=== PATIENT | male | born 1935 | race Caucasian/White ===

== ENCOUNTER 2016-08-30 21:35 | Emergency (ER) | payer OTHER ==
--- NOTE | ~2016-08-30 | CR71 ---
[facility] A Service of [facility] RADIOLOGY TEXT RESULTS PATIENT: SHAW WYNN LOCATION: SED : 34 UNIT #: [id number] AGE: [address]: DARIEL UNGER SEX: M ORDER DR: [id number] [place] [id number] E MR#: [id number] Acc #: [id number] NAME: SHAW WYNN. : 1935 SEX: M STUDY DATE/TIME: 08/30/2016 22:43 UNIT: SED ROOM: STUDY DESCRIPTION: CR Chest Single View Attending Physician: Dariel Unger Aprn Ordering Physician: Physician Non-Staff Primary Care Physician: Primary Care Physician No MEDICAL IMAGING REPORT This report is preliminary unless electronic signature is present. EXAM AP portable chest 08/30/2016 HISTORY 81-year-old male requiring admission chest x-ray for admittance to a mental health facility. Admission testing. TECHNIQUE AP portable upright chest x-ray. FINDINGS Postop changes prior CABG. Stable mild cardiomegaly. Pulmonary vascularity is normal. 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 No visible pulmonary infiltrate or pleural effusion. IMPRESSION 1. No active disease. 2. CABG. Stable mild cardiomegaly and stable tortuous thoracic aorta. 3. Lungs clear. 4. No change since 07/28/2016. 1. Dictated by... Miguelito Dominguez M.D. THIS IS AN ELECTRONICALLY VERIFIED REPORT Miguelito Dominguez M.D. at 08/31/2016 9:42 PM CHANO/[email or web address] TD: 08/31/2016 11:48 JOB #: [id number] MEDICAL IMAGING REPORT [facility] A Service [facility] RADIOLOGY TEXT RESULTS PATIENT: SHAW WYNN LOCATION: SED : 34 UNIT #: [id number] AGE: [address]: DARIEL UNGER SEX: M ORDER DR: Page 1 of 1
[~2016-08-30 21:35] MED LIST: ACETAMINOPHEN PO; AMOXICILLIN PO; ASCORBIC ACID500 MG PO; ASPIRIN81 MG; ASPIRINEC PO; C-10001000 M1 PO; CALAN PO; CARDURA PO; CENTRUM SILVER PO; COUMADIN PO; DEPAKOTE; DEPAKOTE ER; ELIQUIS5 MG PO; EXELON1 PATCH .2 TD; HALDOL; HCTZ PO; HYTRIN; HYTRIN PO; KEPPRA500 M2; LASIX20 MG PO; LEVAQUIN PO; LIPITOR PO; LIPITOR40 MG PO; LISINOPRIL PO; LOMOTIL TABLET1 TAB PO; METOPROLOL SUCC50 MG PO; MULTI-VITAMIN1 TAB PO; NAMENDA10 MG PO; NEURONTIN100 MG PO; NORCO 5/325 TAB1 TAB PO; OMEGA 3 FISH OIL PO; OMEGA 3-6-9 11200 MG PO; POTASSIUM CHLO10 ME1 PO; TRAZODONE; VITAMIN C PO; ZESTRIL10 M2
[2016-08-30 22:01] LABS: URINE SOURCE CLEAN CATCH
[2016-08-30 22:05] LABS: URINE APPEARANCE CLEAR; URINE BILIRUBIN NEG (NEG); URINE BLOOD NEG (NEG); URINE COLOR DK YELLOW; URINE GLUCOSE NEG (NORM); URINE KETONE NEG (NEG); URINE LEUKOCYTE ESTERASE NEG (NEG); URINE NITRATE NEG (NEG); URINE PH 5.5 (5-8); URINE PROTEIN NEG (NEG); URINE SPECIFIC GRAVITY 1.025 (1.003-1.035)
[2016-08-30 22:14] LABS: MICRO INDICATED? NO
[2016-08-30 22:15] LABS: AMPHETAMINE NEG (NEG); BARBITURATES NEG (NEG); BENZODIAZEPINES NEG (NEG); COCAINE NEG (NEG); MARIJUANA NEG (NEG); OPIATES NEG (NEG); TRICYCLIC ANTIDEPRESSANTS NEG (NEG); U METHADONE NEG (NEG)
[2016-08-30 22:19] LABS: BASOPHIL% 0.7 % (0-2.5); EOSINOPHIL# 0.3 X10e3 (0-0.7); EOSINOPHIL% 4.6 % (0.0-7.0); HEMATOCRIT 45.8 % (38.0-50.0); HEMOGLOBIN 14.9 gm/dL (13.0-16.0); LYMPHOCYTE# 1.9 X10e3 (1.0-3.5); MEAN CELL VOLUME 93.4 FL (83-96); MEAN CORPUSCULAR HEMOGLOBIN 30.3 PG (28-34); MEAN CORPUSCULAR HGB CONC 32.5 g/dL (30-36); MONOCYTE# 0.5 X10e3 (0-1.0); MONOCYTE% 8.8 % (3.0-12.0); NEUTROPHIL# 2.9 X10e3 (1.5-7.1); NEUTROPHIL% 51.9 % (40-75); PLATELET COUNT 140 X10e3 (140-420); RED BLOOD COUNT 4.91 X10e (3.90-5.60); RED CELL DISTRIBUTION WIDTH 14.4 % (11.0-15.5); WHITE BLOOD COUNT 5.6 X10e3 (4.0-10.5)
[2016-08-30 22:24] LABS: BUN/CREATININE RATIO 12.3; CALCIUM SERUM 9.4 mg/dL (8.4-10.2); CREATININE SERUM 1.3 mg/dL (0.6-1.4); GLOM FILT RATE Estimated 56.2 mL/min (>60); POTASSIUM 3.4 mmol/L (3.5-5.1)
[2016-08-30 22:26] LABS: DIFF IND NO
== END 2016-08-30 23:24 | disposition home or self-care (01) ==
LOC: SED 21:35
PROVIDERS: Nurse Practitioner Family
DX: F91.9 Conduct disorder, unspecified (principal); Z95.1 Presence of aortocoronary bypass graft; Z88.1 Allergy status to other antibiotic agents
CPT/HCPCS: 36415; 71010; 80048; 80307; 81003; 85025; 99283